=== PATIENT | male | born 1990 | race Caucasian/White ===

== ENCOUNTER 2023-08-07 22:10 | Emergency (ER) | payer OTHER, SELFPAY ==
[2023-08-07 22:16] VITALS: BP 117/95; PULSE 117; TEMP 36.8; O2SAT 99; BMI 24.4
--- NOTE | 2023-08-07 22:36 | ED.GENADUL1 ---
HPI HPI - General Adult General Chief complaint: Upper Respiratory Infection Stated complaint: FEVER, HEADACHE Time Seen by Provider: 08/07/23 22:29 Source: patient Mode of arrival: walk-in Limitations: no limitations History of Present Illness HPI narrative: ill since yesterday. Describes sore throat, fever, headache, sweating and light headed. Decrease intake. Home COVID19 test neg. no abdominal pain but mild nausea Related Data Home Medications ?Medication ?Instructions ?Recorded ?Confirmed atorvastatin 10 mg tablet mg 08/07/23 citalopram 20 mg tablet mg 08/07/23 lisinopril 20 mg tablet mg 08/07/23 Allergies Allergy/AdvReac Type Severity Reaction Status Date / Time No Known Drug Allergies Allergy Verified 08/07/23 22:19 Opioid HPI Opioid Management Most Recent Opioid Data: No Data to Display Review of Systems ROS Status of ROS 10 or more systems reviewed and unremarkable except as noted in history and below Exam Constitutional Vital Signs, click to edit/add: Last Vital Signs Temp 98.3 F 08/07/23 22:16 Pulse 117 H 08/07/23 22:16 Resp 16 08/07/23 22:16 BP 117/95 H 08/07/23 22:16 Pulse Ox 99 08/07/23 22:16 O2 Del Method Room Air 08/07/23 22:16 Common normals: no apparent distress, average body habitus, oriented x3, no limitations, healthy appearing, alert and well nourished [facility] Common normals: normocephalic Other: oral pharynx erythematous. no exudate no stridor Eye Common normals: EOMs intact bilaterally and conjunctivae normal Respiratory Common normals: normal respiratory effort, no retractions, no use of accessory muscles and clear to auscultation bilaterally Cardio Common normals: S1 normal heart sound and S2 normal heart sound Rate: tachycardic GI Common normals: Normal to inspection, nondistended, normoactive bowel sounds present, soft to palpation and non-tender Extremity Common normals: normal to inspection and full ROM Neuro Common normals: oriented x3, CN's II-XII intact bilaterally, moves all extremities and no focal motor deficits Psych Appearance: grossly normal Course Vital Signs Vital signs: Vital Signs Temperature 98.3 F 08/07/23 22:16 Pulse Rate 117 H 08/07/23 22:16 Respiratory Rate 16 08/07/23 22:16 Blood Pressure 117/95 H 08/07/23 22:16 Pulse Oximetry 99 08/07/23 22:16 Oxygen Delivery Method Room Air 08/07/23 22:16 Temperature 98.3 F 08/07/23 22:16 Pulse Rate 117 H 08/07/23 22:16 Respiratory Rate 16 08/07/23 22:16 Blood Pressure 117/95 H 08/07/23 22:16 Pulse Oximetry 99 08/07/23 22:16 Oxygen Delivery Method Room Air 08/07/23 22:16 Medical Decision Making MDM Narrative Medical decision making narrative: patient ill for the past couple of days with headache, sore throat, fever, decreased intake and feeling light headed. Exam with erythema of his oral pharynx and strep screen positive. cxray clear. Patient hydrated in the department and treated with Rocephin. Discharged home with prescription for augmentin Lab Data Labs: Lab Results 08/07/23 08/07/23 Range/Units 22:47 22:48 WBC 14.2 H (4.0-11.0) 10^3/uL RBC 5.23 (4.70-6.10) 10^6/uL Hgb 14.8 (14.0-18.0) g/dL Hct 44.0 (42.0-54.0) % MCV 84.1 (80.0-94.0) fL MCH 28.3 (25.9-34.0) pg MCHC 33.6 (29.9-35.2) g/dL RDW 13.0 (11.0-15.0) % Plt Count 264 (150-450) 10^3/uL MPV 8.6 L (9.5-13.5) fL Neut % (Auto) 81.2 H (43.0-75.0) % Lymph % (Auto) 10.2 L (20.5-60.0) % [place] % (Auto) 8.2 (1.7-12.0) % Eos % (Auto) 0.0 L (0.9-7.0) % Baso % (Auto) 0.1 L (0.2-2.0) % Neut # (Auto) 11.5 H (1.4-6.5) 10^3/uL Lymph # (Auto) 1.4 (1.2-3.8) 10^3/uL [place] # (Auto) 1.2 H (0.3-0.8) 10^3/uL Eos # (Auto) 0.0 (0.0-0.7) 10^3/uL Baso # (Auto) 0.0 (0.0-0.1) 10^3/uL Abs Immat Gran (auto) 0.04 H (0.00-0.03) 10^3/uL Imm/Tot Granulo (auto) 0.3 (0.0-0.5) % Sodium 137 (136-145) mmol/L Potassium 3.6 (3.5-5.1) mmol/L Chloride 101 (98-107) mmol/L Carbon Dioxide 24.7 (21.0-32.0) mmol/L Anion Gap 14.9 BUN 11.0 (7.0-18.0) mg/dL Creatinine 0.94 (0.70-1.30) mg/dL Est GFR ( Amer) >60 (>=60) Est GFR (Non-Af Amer) >60 (>=60) BUN/Creatinine Ratio 11.7 Glucose 108 H (74-106) mg/dL Lactate 0.8 (0.4-2.0) mmol/L Calcium 9.6 (8.5-10.1) mg/dL Streptococcus Screen Positive A Discharge Plan Discharge Stand Alone Forms: Portal Instructions Chief Complaint: Upper Respiratory Infection Clinical Impression: Strep throat Patient Disposition: Home, Self-Care Prescriptions / Home Meds: No Action atorvastatin 10 mg tablet lisinopril 20 mg tablet citalopram 20 mg tablet Print Language: Yoruba Instructions: Strep Throat (ED) Additional Instructions: follow up with your doctor in 2-3 days for recheck Referrals: Physician,Non-Staff, MD [Primary Care Provider] - 1 week Discharge Date/Time: 08/08/23 00:31
--- NOTE | 2023-08-07 22:39 | XR_ITS ---
[address] [address] Patient Name: JUAN CARLOS BARBER MRN: [id number] date: 1990 Sex: M Assigned Patient Location: ER Current Patient Location: ER Accession/Order Number: [id number] Exam Date: 08/07/2023 22:50 Report Date: 08/07/2023 23:15 At the request of: DEANNA HELTON Procedure: XR chest 1V EXAM: XR chest 1V HISTORY: cough COMPARISON: None FINDINGS/IMPRESSION: 1. Lungs are clear 2. No pneumothorax. No pleural effusion. 3. Heart size and mediastinal contours are normal 4. No acute osseous abnormality 5. Upper abdominal bowel gas pattern is nonspecific. Electronically authenticated by: KADIE QUINONEZ Date: 08/07/2023 23:15
[2023-08-07 22:57] LABS: Basophils Percent Auto 0.1 % (0.2-2.0); Hemoglobin 14.8 g/dL (14.0-18.0); Immature Granulocytes Abs Auto 0.04 10^3/uL (0.00-0.03); Immature Granulocytes Pct Auto 0.3 % (0.0-0.5); Lymphocytes Absolute Auto 1.4 10^3/uL (1.2-3.8); Lymphocytes Percent Auto 10.2 % (20.5-60.0); Mean Corpuscular HGB Conc 33.6 g/dL (29.9-35.2); Mean Corpuscular Hemoglobin 28.3 pg (25.9-34.0); Mean Corpuscular Volume 84.1 fL (80.0-94.0); Mean Platelet Volume 8.6 fL (9.5-13.5); Monocytes Absolute Auto 1.2 10^3/uL (0.3-0.8); Monocytes Percent Auto 8.2 % (1.7-12.0); Neutrophils Absolute Auto 11.5 10^3/uL (1.4-6.5); Neutrophils Percent Auto 81.2 % (43.0-75.0); Platelet Count 264 10^3/uL (150-450); Red Blood Count 5.23 10^6/uL (4.70-6.10); White Blood Count 14.2 10^3/uL (4.0-11.0)
[2023-08-07 23:03] LABS: Anion Gap 14.9; BUN Creatinine Ratio 11.7; Calcium 9.6 mg/dL (8.5-10.1); Carbon Dioxide 24.7 mmol/L (21.0-32.0); Chloride 101 mmol/L (98-107); Estimated GFR (African America >60 (>=60); Estimated GFR (Non-African Ame >60 (>=60); Glucose 108 mg/dL (74-106); Potassium 3.6 mmol/L (3.5-5.1); Sodium 137 mmol/L (136-145)
[2023-08-07 23:06] LABS: Internal Control Within Normal Limits; Strep A Antigen Screen Positive
[2023-08-07] MEDS: 0.9 % SODIUM CHLORIDE 1,000 ML 999 ML IV (23:12)
[2023-08-07 23:17] LABS: Lactate/Lactic Acid 0.8 mmol/L (0.4-2.0)
[2023-08-07] MEDS: CEFTRIAXONE 1,000 MG in 0.9 % SODIUM CHLORIDE 50 ML 100 MG IV (23:52)
== END 2023-08-08 00:31 | disposition home or self-care (01) ==
PROVIDERS: Emergency Provider Internal Medicine
DX: J02.0 Streptococcal pharyngitis (principal)
CPT/HCPCS: 36415; 71045; 80048; 83605; 85025; 87880; 96365; 99285

== ENCOUNTER 2024-03-22 20:46 | Emergency (ER) | payer OTHER, SELFPAY ==
[2024-03-22 20:51] VITALS: BP 161/100; PULSE 110; TEMP 36.9; O2SAT 98; BMI 30.7
[2024-03-22 21:26] LABS: Internal Control Within Normal Limits; Strep A Antigen Screen Positive
[2024-03-22 21:33] LABS: Influenza Virus A Antigen Negative; Influenza Virus B Antigen Negative; Internal Control Within Normal Limits; SARS-CoV-2 Ag NEGATIVE (NEGATIVE)
--- NOTE | 2024-03-22 21:39 | ED.URI1 ---
HPI - URI/Sore Throat General Chief Complaint: Upper Respiratory Infection Stated Complaint: COUGH SORE THROAT Time Seen by Provider: 03/22/24 20:52 Source: patient Limitations: no limitations History of Present Illness HPI Narrative: Patient is a 33-year-old male who presents to the emergency department for 2-1/2-week course of illness with sore throat, cough, body aches and chest congestion. He reports associated diarrhea. He had fever at the beginning of the course of his illness. Has not seen his primary care provider or been prescribed any medications. He has not had any vomiting or significant sputum production. No medications taken today prior to arrival other than cough drops and Motrin. He states he came to the emergency department tonight because tomorrow is a holiday and he needs to get it taken care of . Related Data Home Medications ?Medication ?Instructions ?Recorded ?Confirmed citalopram 20 mg tablet 20 mg 08/07/23 lisinopril 20 mg tablet 20 mg 08/07/23 Previous Rx's ?Medication ?Instructions ?Recorded cefdinir 300 mg capsule 300 mg PO BID 10 days #20 caps 03/22/24 methylprednisolone 4 mg tablets in See Rx Instructions .Route 03/22/24 a dose pack (Medrol (Mohan)) .COMPLEX #21 ea Allergies Allergy/AdvReac Type Severity Reaction Status Date / Time No Known Drug Allergies Allergy Verified 03/22/24 20:55 Review of Systems ROS Constitutional Reports: fever; Denies: chills Ears, nose, mouth, and throat Reports: throat pain and nasal congestion Cardiovascular Denies: chest pain Respiratory Reports: cough; Denies: shortness of breath Gastrointestinal Reports: diarrhea; Denies: nausea or vomiting Musculoskeletal Denies: back pain Integumentary/Breast Denies: rash Neurological Reports: headache Hematologic/Lymphatic Denies: easy bruising or easy bleeding PFSH PFSH Social History Little interest or pleasure in doing things: not at all Feeling down, depressed, or hopeless: not at all Exam Narrative Exam Narrative: Gen.: Awake, alert, in no distress Head: Normocephalic, atraumatic ENT: Moist mucous membranes, minimal pharyngeal erythema with uvula midline. No tonsillar edema or exudate. Clear speech. Left TM is minimally erythematous Respiratory: No respiratory distress, lungs clear bilaterally; no wheezing or rhonchi Cardio: Regular rate and rhythm Extremities: Moves extremities equally Psych: Normal mood and affect Neuro: No focal neuro deficit Skin: Warm, dry, intact Constitutional Vital Signs, click to edit/add: Last Vital Signs Temp 98.4 F 03/22/24 20:51 Pulse 110 H 03/22/24 20:51 Resp 18 03/22/24 20:51 BP 161/100 H 03/22/24 20:51 Pulse Ox 98 03/22/24 20:51 O2 Del Method Room Air 03/22/24 20:51 Course Vital Signs Vital signs: Vital Signs Temperature 98.4 F 03/22/24 20:51 Pulse Rate 110 H 03/22/24 20:51 Respiratory Rate 18 03/22/24 20:51 Blood Pressure 161/100 H 03/22/24 20:51 Pulse Oximetry 98 03/22/24 20:51 Oxygen Delivery Method Room Air 03/22/24 20:51 Temperature 98.4 F 03/22/24 20:51 Pulse Rate 110 H 03/22/24 20:51 Respiratory Rate 18 03/22/24 20:51 Blood Pressure 161/100 H 03/22/24 20:51 Pulse Oximetry 98 03/22/24 20:51 Oxygen Delivery Method Room Air 03/22/24 20:51 MDM - URI/Sore Throat MDM Narrative Medical decision making narrative: Patient is positive for strep. Treated with cefdinir and Decadron in the ER. Follow-up with PCP and return to the emergency department if symptoms change or worsen. Patient is hemodynamically stable at discharge SUPERVISED APC VISIT, PHYSICIAN ATTESTATION: Based on the medical record the care appears appropriate. ? Medical Records Attestation: I reviewed the patient's medical records. Lab Data Attestation: I reviewed the patient's lab results. Labs: Lab Results 03/22/24 Range/Units 21:00 Influenza Type A Ag Negative Influenza Type B Ag Negative SARS-CoV-2 Ag (CV2AG) Negative (NEGATIVE) Streptococcus Screen Positive A Discharge Plan Discharge Chief Complaint: Upper Respiratory Infection Clinical Impression: Strep throat, Upper respiratory infection Patient Disposition: Home, Self-Care Time of Disposition Decision: 21:38 Condition: Good Prescriptions / Home Meds: New methylprednisolone [Medrol (Mohan)] 4 mg tablets,dose pack See Rx Instructions .ROUTE .COMPLEX Qty: 21 0RF Rx Instructions: Taper as directed cefdinir 300 mg capsule 300 mg PO BID 10 Days Qty: 20 0RF No Action lisinopril 20 mg tablet 20 mg citalopram 20 mg tablet 20 mg Print Language: Croatian Instructions: Strep Throat (ED), Upper Respiratory Infection (ED) Referrals: Physician,Non-Staff, MD [Primary Care Provider] - 1 week
[2024-03-22] MEDS: DEXAMETHASONE SOD PHOS 10 MG/ML VIAL PO (21:59)
[2024-03-22] MEDS: CEFDINIR 300 MG CAPSULE PO (21:59)
[2024-03-22 22:06] VITALS: BP 148/103; PULSE 106; O2SAT 97
--- NOTE | 2024-03-22 22:09 | PC.NURSE ---
Uvula red. C/O sore throat
== END 2024-03-22 22:10 | disposition home or self-care (01) ==
PROVIDERS: Physician Assistant; Emergency Provider Emergency Medicine
DX: J02.0 Streptococcal pharyngitis (principal)
CPT/HCPCS: 87804; 87811; 87880; 99285; J1100